=== PATIENT | male | born 1995 | race Caucasian/White ===

== ENCOUNTER 2017-04-12 19:41 | Emergency (ER) | payer SELFPAY, OTHER | END 2017-04-12 21:48 | disposition left against medical advice (07) | LOC: FTE 19:41 → E/R 21:48 | DX: Z53.21 Procedure and treatment not carried out due to patient leaving prior to being seen by health care provider (principal) ==

== ENCOUNTER 2017-05-04 08:35 | Emergency (ER) | payer BC ==
[2017-05-04] MEDS: KETOROLAC 60 MG INJ IM (11:39)
[2017-05-04] MEDS: HYDROCODONE/APAP (5/325) TAB PO (11:39)
== END 2017-05-04 15:19 | disposition home or self-care (01) ==
LOC: FTE 08:35
DX: M79.605 Pain in left leg (principal); I10 Essential (primary) hypertension; Z79.82 Long term (current) use of aspirin
CPT/HCPCS: 73590; 73610; 93971; 96372; 99285-25